=== PATIENT | male | born 1955 | race Caucasian/White ===

== ENCOUNTER 2023-11-06 09:48 | Day surgery (SDC) | payer MEDICARE ==
[~2023-11-06] VITALS: Ht 160 cm; Wt 97.6 kg
[~2023-11-06 09:48] MED LIST: DESM0.1T16 PO; HYDR-4468 PO; LISI5TAB11 PO; SERT150C PO; SIMV40TA20 PO; TAMS1CAP17 PO
[2023-11-06] MEDS ORDERED: LR 1,000 ML IV SCH ×2 (09:55→13:35)
[2023-11-06] MEDS ORDERED: propofoL 200 MG/20 ML VIAL As Ordered ONE (11:42)
[2023-11-06] MEDS ORDERED: SUGAMMADEX SODIUM 500 MG/5 ML VIAL (BRIDION) As Ordered ONE (11:43)
[2023-11-06] MEDS ORDERED: ROCURONIUM BROMIDE 50MG/5ML VIAL As Ordered ONE (11:43)
[2023-11-06] MEDS ORDERED: ONDANSETRON 4MG 2ML VIAL As Ordered ONE (11:43)
[2023-11-06] MEDS ORDERED: LIDOCAINE 2% 100MG/5ML SDV (FOR ANES.) As Ordered ONE (11:43)
[2023-11-06] MEDS ORDERED: fentaNYL 100 MCG/2 ML INJECTION As Ordered ONE (11:47)
[2023-11-06] MEDS ORDERED: MIDAZOLAM INJ 2MG/2ML VIAL As Ordered ONE (11:47)
[2023-11-06] MEDS ORDERED: LIDOCAINE W/EPINEPHRINE 1% 20ML VIAL As Ordered ONE (12:23)
[2023-11-06] MEDS ORDERED: ACETAMINOPHEN 1000MG 100ML IV BAG As Ordered ONE (12:49)
[2023-11-06] MEDS ORDERED: ONDANSETRON 4MG 2ML VIAL IV PRN (13:35)
[2023-11-06] MEDS ORDERED: oxyCODONE 5MG TAB PO PRN (13:35)
[2023-11-06] MEDS ORDERED: fentaNYL 100 MCG/2 ML INJECTION IV PRN (13:35)
[2023-11-06] MEDS ORDERED: HYDROMORPHONE HCL 0.5 MG/ 0.5 ML SYRINGE IV PRN (13:35)
[2023-11-06 14:25] VITALS: BP 148/76; TEMP 97.6; O2SAT 96
== END 2023-11-06 14:37 | disposition home or self-care (01) ==
LOC: M SDC 09:48
PROVIDERS: ATTEND Dentist Oral and Maxillofacial Surgery
DX: K02.9 Dental caries, unspecified (principal); I10 Essential (primary) hypertension; E78.00 Pure hypercholesterolemia, unspecified; F32.A Depression, unspecified; F41.9 Anxiety disorder, unspecified; Z79.899 Other long term (current) drug therapy; F17.220 Nicotine dependence, chewing tobacco, uncomplicated
CPT/HCPCS: 88300; D7140; D9223; J0131; J1100; J2250; J2405; J3010